=== PATIENT | female | born 2000 | race Hispanic/Latino ===

== ENCOUNTER 2021-02-28 19:32 | Emergency (ER) | payer OTHER, SELFPAY ==
[2021-02-28 20:06] LABS: Absolute Lymphocytes (CBC) 1.4 K/uL (0.7-4.9); Hematocrit 40.5 % (36.0-45.0); Lymphocytes % 15.7 % (15.3-44.8); MPV 8.4 fL (7.6-11.3); RBC Red Blood Cell Count 4.65 M/uL (3.86-4.86)
[2021-02-28 20:55] LABS: SARS-COV-2 RT PCR NEGATIVE (NEGATIVE)
--- NOTE | 2021-02-28 21:02 | RAD REPORT ---
EXAM DESCRIPTION: CTAbdomen Pelvis W Contrast - 02/28/2021 8:52 pm CLINICAL HISTORY: Abdominal pain. ABD PAIN COMPARISON: No comparisons TECHNIQUE: Biphasic CT imaging of the abdomen and pelvis was performed with 100 ml non-ionic IV cont rast. All CT scans are performed using dose optimization technique as appropriate and may include automated exposure control or mA/KV adjustment according to patient size. FINDINGS: The lung bases are clear. The liver, spleen, pancreas, adrenal glands and kidneys are within normal limits. No bowel obstruction, free air, free fluid or abscess. The appendix is normal. No evidence of signi ficant lymphadenopathy. No suspicious bony findings. IMPRESSION: No acute intra-abdominal or pelvic finding.
[2021-02-28 21:14] LABS: Urine Bacteria 20-50 /HPF (<20); Urine RBC <5 /HPF (NONE SEEN)
[2021-02-28 21:22] LABS: Urine Specific Gravity/Preg 1.015 (1.005-1.030)
[2021-02-28 21:55] LABS: Albumin 3.5 g/dL (3.4-5.0); Bilirubin Direct 0.1 mg/dL (0-0.2); Bilirubin Total 0.4 mg/dL (0.2-1.0); Potassium 3.3 mmol/L (3.5-5.1)
[2021-02-28] MEDS ORDERED: ONDANSETRON 4 MG/2 ML VIAL ONE (22:50)
[2021-02-28] MEDS ORDERED: NA CHLORIDE 0.9% 1,000 ML ONE (22:51)
[2021-02-28] MEDS ORDERED: KETOROLAC 30 MG/ML INJ ONE (22:51)
--- NOTE | 2021-02-28 22:54 | EDPHYS ---
Physician Documentation [facility] Name: Nusrat Robles Age: 20 yrs Sex: Female : 2000 Arrival Date: 02/28/2021 Time: 19:34 Bed 11 Private MD: ED Physician Alfredo Wright HPI: 02/28 20:24 This 20 yrs old Female presents to ER via Wheelchair with complaints of kb Abdominal Pain. 20:24 The patient presents with abdominal pain in the periumbilical area. Onset: The kb symptoms/episode began/occurred today. The symptoms do not radiate. Associated signs and symptoms: Pertinent positives: nausea and vomiting, Pertinent negatives: diarrhea, fever. The symptoms are described as constant. Modifying factors: The symptoms are alleviated by nothing, the symptoms are aggravated by movement. Severity of pain: At its worst the pain was moderate in the emergency department the pain is unchanged. The patient has not experienced similar symptoms in the past. The patient has not recently seen a physician. nausea and vomiting started early on Friday morning, vomiting stopped around 0800, but nausea has continued. periumbilical pain started at 1000 today. Pt reports pain is worse with movement, feels better with knees bent up into abd. . 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 - Social history:: Smoking status: Patient denies any tobacco usage or history of. Patient/guardian denies using alcohol, street drugs. ROS: 20:24 Respiratory: Negative for shortness of breath, cough, wheezing, and pleuritic chest kb pain. 20:24 Constitutional: Positive for fever, Negative for body aches, chills, fatigue, malaise, poor PO intake, weight loss. 20:24 Abdomen/GI: Positive for abdominal pain, nausea and vomiting, Negative for diarrhea. 20:24 All other systems are negative. Exam: 20:26 Constitutional: This is a well developed, well nourished patient who is awake, alert, kb and in no acute distress. Head/Face: Normocephalic, atraumatic. ENT: Moist Mucous membranes Cardiovascular: Regular rate and rhythm with a normal S1 and S2. No gallops, murmurs, or rubs. No pulse deficits. Respiratory: Respirations even and unlabored. No increased work of breathing. Talking in full sentences Skin: Warm, dry with normal turgor. Normal color. MS/ Extremity: Pulses equal, no cyanosis. Neurovascular intact. Full, normal range of motion. Neuro: Awake and alert, GCS 15, oriented to person, place, time, and situation. Moves all extremities. Normal gait. Psych: Awake, alert, with orientation to person, place and time. Behavior, mood, and affect are within normal limits. 20:26 Abdomen/GI: Inspection: abdomen appears normal, Bowel sounds: normal, in all quadrants, kb Palpation: soft, in all quadrants, mild abdominal tenderness, in the left upper quadrant, moderate abdominal tenderness, in the right lower quadrant and left lower quadrant. Vital Signs: 19:41 BP 107 / 73; Pulse 92; Resp 20; Temp 98.8; Pulse Ox 100% ; Weight 44.45 kg; Height 5 sm5 ft. 2 in. (157.48 cm); Pain 8/10; 19:41 Body Mass Index 17.92 (44.45 kg, 157.48 cm) 5 MDM: 20:00 Patient medically screened. kb 20:27 Data reviewed: vital signs, nurses notes. Data interpreted: Pulse oximetry: on room air kb is 100 %. Interpretation: normal. 22:52 Counseling: I had a detailed discussion with the patient and/or guardian regarding: the kb historical points, exam findings, and any diagnostic results supporting the discharge/admit diagnosis, lab results, radiology results, the need for outpatient follow up, a family practitioner, to return to the emergency department if symptoms worsen or persist or if there are any questions or concerns that arise at home. ED course: Pt has no urinary symptoms. . 02/28 19:47 Order name: Basic Metabolic Panel; Complete Time: 21:56 5 02/28 19:47 Order name: CBC with Diff; Complete Time: 20:20 5 02/28 19:47 Order name: Hepatic Function; Complete Time: 21:56 5 02/28 19:47 Order name: Lipase; Complete Time: 21:56 [facility] 02/28 19:47 Order name: Urine Microscopic Only; Complete Time: 21:26 [facility] 02/28 19:47 Order name: CT Abd/Pelvis - IV Contrast Only; Complete Time: 21:05 [facility] 02/28 20:01 Order name: COVID-19/FLU A+B (Document "Date of Onset" if Symptomatic); Complete Time: kb 21:00 02/28 20:02 Order name: Urine --Ancillary (enter results); Complete Time: 21:26 ds4 02/28 21:14 Order name: Urine Culture [facility] 02/28 21:57 Order name: US Transvaginal Study (Probe) kb 02/28 19:47 Order name: IV Saline Lock; Complete Time: 19:51 [facility] 02/28 19:47 Order name: Labs collected and sent; Complete Time: 19:52 [facility] 02/28 19:47 Order name: Urine Dipstick-Ancillary (obtain specimen); Complete Time: 20:02 [facility] 02/28 19:47 Order name: Urine Test (obtain specimen); Complete Time: 20:02 [facility] Administered Medications: 22:55 Drug: NS 0.9% 1000 ml Route: IV; Rate: 1000 ml; Site: right antecubital; sm5 22:55 Drug: Ketorolac 15 mg Route: IVP; Site: right antecubital; sm5 22:55 Drug: Zofran (Ondansetron) 4 mg Route: IVP; Site: right antecubital; sm5 23:10 Drug: Potassium Chloride 20 mEq Route: PO; sm5 Disposition: 03/01 00:07 Co-signature as Attending Physician, Alfredo Wright MD I agree with the assessment and rn plan of care. Attestation: The patient's history, exam findings, diagnostics, and a summary of any interventions or procedures was reviewed in detail with Agustina DUEÑAS. Disposition Summary: 02/28/21 22:53 Discharge Ordered Location: Home kb Condition: Stable kb Diagnosis - Nausea with vomiting, unspecified kb - Abdominal pain, Generalized kb Followup: kb - With: Emergency Department - When: As needed - Reason: Worsening of condition Followup: kb - With: Private Physician - When: 2 - 3 days - Reason: Recheck today's complaints, Continuance of care, Re-evaluation by your physician Discharge Instructions: - Discharge Summary Sheet kb - Nausea and Vomiting, Adult, [id number] kb - Abdominal Pain, Adult, [id number] kb Forms: - Medication Reconciliation Form kb - Thank You Letter kb - Antibiotic Education kb - Prescription Opioid Use kb Prescriptions: - Zofran 4 mg Oral Tablet - take 1 tablet by ORAL route every 6 hours As needed; 20 tablet; Refills: 0, kb Product Selection Permitted - dicyclomine 20 mg Oral Tablet - take 1 tablet by ORAL route 4 times per day As needed; 20 tablet; Refills: 0, kb Product Selection Permitted Signatures: Dispatcher [employer] EDMS Agustina Palmer, ROPER OPERATOR-C ROPER OPERATOR-Alfredo Suresh MD MD rn Mazur, Sarah, RN RN sm5 Corrections: (The following items were deleted from the chart) 02/28 20:27 20:26 Constitutional: This is a well developed, well nourished patient who is awake, kb alert, and in no acute distress. Head/Face: Normocephalic, atraumatic. ENT: Moist Mucous membranes Cardiovascular: Regular rate and rhythm with a normal S1 and S2. No gallops, murmurs, or rubs. No pulse deficits. Respiratory: Respirations even and unlabored. No increased work of breathing. Talking in full sentences Abdomen/GI: Soft, non-tender. No distention Skin: Warm, dry with normal turgor. Normal color. MS/ Extremity: Pulses equal, no cyanosis. Neurovascular intact. Full, normal range of motion. Neuro: Awake and alert, GCS 15, oriented to person, place, time, and situation. Moves all extremities. Normal gait. Psych: Awake, alert, with orientation to person, place and time. Behavior, mood, and affect are within normal limits. kb
--- NOTE | 2021-02-28 22:54 | ER ---
Nurse's Notes [facility] Name: Nusrat Robles Age: 20 yrs Sex: Female : 2000 Arrival Date: 02/28/2021 Time: 19:34 Bed 11 Private MD: Diagnosis: Nausea with vomiting, unspecified;Abdominal pain, Generalized Presentation: 02/28 19:41 Chief complaint:. Chief complaint: Patient states: nausea and vomiting started on sm5 Friday, now having periumbilical abd pain starting today. Coronavirus screen: Vaccine status: Patient reports receiving the 2nd dose of the covid vaccine. Ebola Screen: No symptoms or risks identified at this time. Initial Sepsis Screen: Does the patient meet any 2 criteria? No. Patient's initial sepsis screen is negative. Does the patient have a suspected source of infection? No. Patient's initial sepsis screen is negative. Risk Assessment: Do you want to hurt yourself or someone else? Patient reports no desire to harm self or others. Onset of symptoms was February 27, 2021. 19:41 Method Of Arrival: Wheelchair [facility] 19:41 Acuity: CHRISTOPHER 3 5 Triage Assessment: 19:44 General: Appears in no apparent distress. Behavior is cooperative. Pain: Complains of 5 pain in abdomen Pain currently is 8 out of 10 on a pain scale. Neuro: No deficits noted. Level of Consciousness is awake, alert, Oriented to person, place, time, situation. Cardiovascular: No deficits noted. Capillary refill < 3 seconds Patient's skin is warm and dry. Respiratory: No deficits noted. Airway is patent Trachea midline Respiratory effort is even, unlabored. GI: Abdomen is non-distended, Reports lower abdominal pain, upper abdominal pain, nausea, vomiting. 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 - Social history:: Smoking status: Patient denies any tobacco usage or history of. Patient/guardian denies using alcohol, street drugs. Screenin:24 Abuse screen: Denies threats or abuse. Denies injuries from another. Nutritional 5 screening: No deficits noted. Tuberculosis screening: No symptoms or risk factors identified. Fall Risk None identified. Assessment: 23:24 GI: Bowel sounds present X 4 quads. Abd is soft and non tender. 5 Vital Signs: 19:41 BP 107 / 73; Pulse 92; Resp 20; Temp 98.8; Pulse Ox 100% ; Weight 44.45 kg; Height 5 5 ft. 2 in. (157.48 cm); Pain 8/10; 19:41 Body Mass Index 17.92 (44.45 kg, 157.48 cm) 5 ED Course: 19:34 Patient arrived in ED. kc5 19:43 Triage completed. 5 19:48 Inserted saline lock: 20 gauge in right antecubital area, using aseptic technique. 5 Blood collected. 19:52 Basic Metabolic Panel Sent. 5 19:52 CBC with Diff Sent. 5 19:52 Hepatic Function Sent. 5 19:52 Lipase Sent. 5 20:00 Agustina Palmer [facility]C [facility] kb 20:00 Alfredo Wright MD is Attending Physician. kb 20:52 CT Abd/Pelvis - IV Contrast Only In Process Unspecified. EDMS 22:16 US Transvaginal Study (Probe) In Process Unspecified. EDMS 22:55 Carmen Bird, DAGOBERTO is Primary Nurse. 5 23:24 No provider procedures requiring assistance completed. IV discontinued, intact, 5 bleeding controlled, No redness/swelling at site. Pressure dressing applied. 23:24 Arm band placed on right wrist. 5 23:24 Patient has correct armband on for positive identification. Bed in low position. Call [facility] light in reach. Administered Medications: 22:55 Drug: NS 0.9% 1000 ml Route: IV; Rate: 1000 ml; Site: right antecubital; sm5 22:55 Drug: Ketorolac 15 mg Route: IVP; Site: right antecubital; sm5 22:55 Drug: Zofran (Ondansetron) 4 mg Route: IVP; Site: right antecubital; 5 23:10 Drug: Potassium Chloride 20 mEq Route: PO; 5 Outcome: 22:53 Discharge ordered by . kb 23:24 Discharged to home ambulatory, with significant other. sm5 23:24 Condition: good 23:24 Discharge instructions given to patient, Instructed on discharge instructions, follow up and referral plans. medication usage, Demonstrated understanding of instructions, follow-up care, medications, Prescriptions given X 2. 23:25 Patient left the ED. sm5 Signatures: Dispatcher [employer] EDMS Agustina Palmer, SPENSER RHODES-Meri Carlin kc5 Carmen Bird, RN RN [facility]
[2021-02-28] MEDS ORDERED: POTASSIUM CL SA 10 MEQ TAB PO ONE (22:59)
[2021-03-01 00:59] VITALS: BP 107/73; TEMP 98.8; O2SAT 100
--- NOTE | 2021-03-01 08:28 | RAD REPORT ---
EXAM DESCRIPTION: US - Transvaginal Study Probe - 02/28/2021 10:16 pm CLINICAL HISTORY: ABD PAIN COMPARISON: No comparisons FINDINGS: The uterus is normal in size, shape and echotexture. The endometrial stripe measures 2 mm, normal Both ovaries are normal in size, shape and echotexture. The right ovary measures 0.2 mL. The left o vary measures 0.9 mL. No ovarian or parovarian lesions. No adnexal masses. Normal Doppler blood flow was demonstrated to both ovaries. No significant pelvic ascites. IMPRESSION: Unremarkable study.
[2021-03-01 08:47] LABS: Urine Blood Trace-lysed (Negative); Urine Glucose Negative (Negative); Urine Protein Negative (Negative); Urine Specific Gravity 1.015 (1.005-1.030)
== END 2021-02-28 23:25 | disposition home or self-care (01) ==
LOC: ER 19:32
DX: R10.84 Generalized abdominal pain (principal); Z20.822 Contact with and (suspected) exposure to COVID-19
CPT/HCPCS: 0240U; 36415; 74177; 76830; 80048; 80076; 81003; 81015; 81025; 83690; 85025; 87086; 87088; 96374; 96375; 99284; J2405; J7030; Q9967

== ENCOUNTER 2022-08-21 06:52 | Day surgery (SDC) | payer OTHER, SELFPAY ==
[2022-08-21] MEDS ORDERED: Ringers Lactate 1,000 ML IV ONE (07:36)
[2022-08-21] MEDS ORDERED: propofoL 200 MG/20 ML VIAL IV ONE ×2 (08:39)
[2022-08-21] MEDS ORDERED: LIDOCAINE 1% MPF 5 ML VIAL ONE (08:39)
[2022-08-21] MEDS ORDERED: LIDOCAINE 2% MPF 5 ML VIAL ONE (08:47)
[2022-08-21 08:53] LABS: Urine Specific Gravity/Preg >1.030 (1.005-1.030)
[2022-08-21] MEDS ORDERED: Phenylephrine HCl 10 MG/ML 1 ML VIAL ONE (09:31)
[2022-08-21 12:59] VITALS: O2SAT 100
[2022-08-21 13:00] VITALS: BP 120/74; TEMP 98
== END 2022-08-21 10:35 | disposition home or self-care (01) ==
LOC: OR 06:52
PROVIDERS: ATTEND Internal Medicine Gastroenterology
PROC: 0DBG8ZX Excision of Left Large Intestine, Via Natural or Artificial Opening Endoscopic, Diagnostic (ICD-10-PCS; 2022-08-21)
PROC: 0DBP8ZX Excision of Rectum, Via Natural or Artificial Opening Endoscopic, Diagnostic (ICD-10-PCS; 2022-08-21)
PROC: 0DBF8ZX Excision of Right Large Intestine, Via Natural or Artificial Opening Endoscopic, Diagnostic (ICD-10-PCS; 2022-08-21)
PROC: 0DB68ZX Excision of Stomach, Via Natural or Artificial Opening Endoscopic, Diagnostic (ICD-10-PCS; principal; 2022-08-21 08:15)
PROC: 0DB88ZX Excision of Small Intestine, Via Natural or Artificial Opening Endoscopic, Diagnostic (ICD-10-PCS; 2022-08-21 08:15)
DX: K92.1 Melena (principal); Z80.0 Family history of malignant neoplasm of digestive organs; R19.4 Change in bowel habit; R10.13 Epigastric pain; R10.32 Left lower quadrant pain; K64.8 Other hemorrhoids; K29.50 Unspecified chronic gastritis without bleeding; R11.0 Nausea; R68.81 Early satiety; R07.89 Other chest pain; R10.11 Right upper quadrant pain; R10.12 Left upper quadrant pain
CPT/HCPCS: 81025; 88305; J2001; J2371; J2704; J7120